=== PATIENT | male | born 1955 | race Caucasian/White ===

== ENCOUNTER 2021-08-25 10:56 | Outpatient (CLI) | payer BC, SELFPAY ==
--- NOTE | 2021-08-25 10:45 | RT.EKG_ITS ---
APPROVED REPORT Exam: Resting ECG Reason for Exam: SOB Patient Location: O HR:47 bpm ECG Measurements Heart Rate 47 AXIS KS 185 P 39 QRSd 102 QRS -28 QT 462 T 26 QTc 407 Conclusion Sinus bradycardia...rate< 60
== END 2021-08-25 10:57 | disposition home or self-care (01) ==
LOC: DI.CM 10:58
PROVIDERS: Visit Provider Physician Assistant
DX: R06.02 Shortness of breath (principal); U09.9 Post COVID-19 condition, unspecified
CPT/HCPCS: 93010

== ENCOUNTER → 2021-08-25 13:26 | Outpatient (CLI) | payer BC, SELFPAY ==
--- NOTE | 2021-08-25 12:27 | DI.RAD_ITS ---
Exam(s) XR CHEST 2V PA LATERAL EXAM: XR CHEST 2V PA LATERAL CLINICAL HISTORY: cough, x 5 weeks, s/p covid, R05.9 TECHNIQUE: 2D digital imaging was performed of the chest. Three images were obtained. PA and later al views were obtained. COMPARISON: No exams were available for comparison FINDINGS: MEDIASTINUM: Normal. HEART: Normal. PULMONARY VASCULATURE: Normal. LUNGS: Clear. PLEURAL SPACE: No pleural effusion or pneumothorax. BONE:Within normal limits for the patient's age. OTHER FINDINGS:Normal. IMPRESSION: No acute pulmonary findings. DATA REPOSITORY: RADIATION DOSE DELIVERED:
== END ==
PROVIDERS: Visit Provider Physician Assistant
DX: R05.8 Other specified cough (principal); Z86.16 Personal history of COVID-19
CPT/HCPCS: 71046

== ENCOUNTER 2021-12-22 01:20 | Outpatient (CLI) | payer MEDICARE, SELFPAY ==
[2021-12-22 13:02] LABS: Magnesium 1.8 mg/dL (1.8-2.4); Vitamin B12 759 pg/mL (193-986)
== END 2021-12-22 01:21 | disposition home or self-care (01) ==
LOC: LOS 01:20
DX: D51.8 Other vitamin B12 deficiency anemias (principal); G62.9 Polyneuropathy, unspecified; R25.2 Cramp and spasm
CPT/HCPCS: 36415; 82607; 83735

== ENCOUNTER 2022-11-15 02:55 | Outpatient (CLI) | payer MEDICARE, SELFPAY ==
[2022-11-15 12:18] LABS: Abs Immature Grans 0.02 10^3/uL (0.0-0.06); Absolute Basophil Count 0.03 10^3/uL (0.0-0.2); Absolute Eosinophil Count 0.17 10^3/uL (0.0-0.7); Absolute Monocyte Count 0.67 10^3/uL (0.1-0.8); Absolute Neutrophil Count 2.73 10^3/uL (1.2-6.7); Basophils % 0.5; Eosinophils % 2.9; HGB 13.4 g/dL (13.5-17.5); Immature Grans % 0.3; Lymphocytes % 38.9; MCH 30.2 pg (27.0-33.0); MCHC 33.5 % (32.0-36.0); MCV 90 fL (80-95); MPV 11.7 fL (8.0-11.0); Monocytes % 11.3; Neutrophils % 46.1; Platelet Count 226 10^3/uL (130-400); RBC 4.44 10^6/uL (4.36-5.78); RDW 13.1 % (11.8-14.1); RDW-SD 43.2 fL; WBC 5.92 10^3/uL (4.4-10.8)
[2022-11-15 15:12] LABS: Ferritin 153 ng/mL (26-388)
[2022-11-15 22:13] LABS: PSA, Screening 0.9 ng/mL (<=4.5)
== END 2022-11-15 02:56 | disposition home or self-care (01) ==
LOC: LOS 02:55
PROVIDERS: PCP Nurse Practitioner Family; Visit Provider Nurse Practitioner Family
DX: D64.9 Anemia, unspecified (principal); G62.9 Polyneuropathy, unspecified; Z12.5 Encounter for screening for malignant neoplasm of prostate
CPT/HCPCS: 36415; 84153; 82728; 85025

== ENCOUNTER → 2022-12-21 11:41 | Outpatient (CLI) | payer MEDICARE, SELFPAY ==
[2022-12-21] MEDS: Barium Sulfate 2% W/V-Creamy Vanilla Smoothie 450 ML BTL PO (10:41)
[2022-12-21] MEDS: Barium Sulfate 2% W/V-Berry Smoothie 450 ML BTL PO (10:41)
[2022-12-21 10:57] LABS: CREATININE 1.2 mg/dL (0.70-1.30)
[2022-12-21] MEDS: Omnipaque 350 MG/ML 500 ML BTL-Imaging package 100 ML IJ (12:41)
[2022-12-21] MEDS: Normal Saline - Diluent 50 ML VIAL IJ (12:43)
--- NOTE | 2022-12-21 12:50 | DI.CT_ITS ---
Exam(s) CT ABDOMEN PELVIS W EXAM: CT ABDOMEN PELVIS W CLINICAL HISTORY: LLQ abdominal pain,H/O DIVERTICULITIS,R10.32,Z87.19 TECHNIQUE: Imaging Protocol: Axial computed tomography images with coronal and sagittal reformatted images were created and reviewed CONTRAST MATERIAL: Intravenous: Omnipaque 350 Contrast volume:100 mL Oral: Yes COMPARISON: No exams were available for comparison FINDINGS: ABDOMEN: Lung Bases: There is a small hiatal hernia. Liver: Normal density. No measurable mass. There is a 1-2 mm tiny hypodensity in the right lobe of th e liver. It is too small for further characterization. Portal, Superior Mesenteric, and Splenic Veins: Unremarkable. Gallbladder and Biliary Tract: No radiodense calculus or dilation. Pancreas: Normal density, no abnormal calcifications or inflammatory process. Spleen: Normal. Adrenals: No masses seen. Kidneys: Normal size, contour and axis. No radiodense stones or obstructive uropathy. There is a 2.3 cm simple cyst in the right kidney. No follow-up is recommended. Abdominal Aorta: Abdominal portion non-dilated. Atherosclerosis. Bowel: There is colonic diverticulosis present. There are mild inflammatory changes seen at the junc tion of the descending and sigmoid colon consistent with acute diverticulitis. There also mild infla mmatory changes seen in the mid descending colon. There is no evidence of bowel obstruction. No josiah dence of appendicitis. Peritoneal Cavity: No ascites, collection or mesenteric inflammatory response. No free air. Lymph Nodes: Within normal limits. Bones: Within normal limits for the patient's age. There is unilateral left spondylolysis at L5. Th ere is a mild S-type thoracolumbar scoliosis. Soft Tissues: Unremarkable. PELVIS: Bladder: Symmetric distention, no gross wall thickening. Reproductive Organs: Unremarkable as visualized. Lymph Nodes: Within normal limits. Bones: Within normal limits for the patient's age. IMPRESSION: Findings of acute diverticulitis involving the descending colon. No abscess or free air. RADIATION DOSE DELIVERED: 980.44mGy.cm Total DLP DATA REPOSITORY: All CT scans at this facility are submitted to the National Radiology Data Registry (NRDR) Dose Index Registry (DIR) with the [employer] (A[employer]). RADIATION OPTIMIZATION: All CT scans at this facility use at least one of these dose optimization te chniques: automated exposure control; mA and/or kV adjustment per patient size (includes targeted exa ms where dose is matched to clinical indication); or iterative reconstruction.
== END ==
PROVIDERS: PCP Nurse Practitioner Family; Visit Provider Nurse Practitioner Family
DX: Z87.19 Personal history of other diseases of the digestive system; K57.32 Diverticulitis of large intestine without perforation or abscess without bleeding
CPT/HCPCS: 74177; 82565

== ENCOUNTER 2023-02-13 02:00 | Outpatient (CLI) | payer MEDICARE, SELFPAY ==
[2023-02-13 11:53] LABS: GTT Comment See Comments
== END 2023-02-13 02:01 | disposition home or self-care (01) ==
PROVIDERS: PCP Nurse Practitioner Family; Visit Provider Nurse Practitioner Family
DX: G62.9 Polyneuropathy, unspecified (principal)
CPT/HCPCS: 36415; 82951

== ENCOUNTER 2023-09-18 09:05 | Outpatient (CLI) | payer MEDICARE, SELFPAY ==
[2023-09-18 12:10] LABS: Abs Immature Grans 0.01 10^3/uL (0.0-0.06); Absolute Basophil Count 0.05 10^3/uL (0.0-0.2); Absolute Eosinophil Count 0.26 10^3/uL (0.0-0.7); Absolute Lymphocyte Count 1.91 10^3/uL (1.2-3.4); Absolute Monocyte Count 0.39 10^3/uL (0.1-0.8); Absolute Neutrophil Count 2.26 10^3/uL (1.2-6.7); Eosinophils % 5.3 %; HCT 39.6 % (40.0-50.0); HGB 13.3 g/dL (13.5-17.5); Immature Grans % 0.2 %; Lymphocytes % 39.1 %; MCH 30.3 pg (27.0-33.0); MCHC 33.6 % (32.0-36.0); MCV 90 fL (80-95); MPV 10.9 fL (8.0-11.0); Neutrophils % 46.4 %; Platelet Count 219 10^3/uL (130-400); RBC 4.39 10^6/uL (4.36-5.78); RDW 12.3 % (11.8-14.1); RDW-SD 40.9 fL; WBC 4.88 10^3/uL (4.4-10.8)
[2023-09-18 12:30] LABS: Anion Gap 6.3 mmol/L (3-11); BUN 18 mg/dL (7-18); CO2 29.7 mmol/L (21.0-32.0); CREATININE 1.2 mg/dL (0.70-1.30); Calcium 9.1 mg/dL (8.5-10.1); Calculated LDL 92 mg/dL (<100); Chloride 106 mmol/L (98-107); Cholesterol 160 mg/dL (<200); Glucose 103 mg/dL (74-106); HDL Cholesterol 57 mg/dL (40-60); Potassium 4.6 mmol/L (3.5-5.1); Sodium 142 mmol/L (136-145); Triglyceride 55 mg/dL (<150)
[2023-09-18 17:59] LABS: PSA, Screening 1.1 ng/mL (<=4.5)
[2023-09-18 23:18] LABS: Ferritin 157 ng/mL (26-388); Vitamin B12 546 pg/mL (193-986)
[2023-09-18 23:19] LABS: Folate > 20.0 ng/mL (8.6-20.0)
[2023-09-19 10:02] LABS: Hepatitis C Ab w Rflx HCV PCR Negative (Negative)
[2023-09-19 10:11] LABS: HIV-1/2 Ag & Ab Screen Negative (Negative)
[2023-09-19 10:42] LABS: HBs Antibody, Quant <3.1 mIU/mL (See Note); Hep B Surface Ab Negative (See Note); Hepatitis B Core Antibody Negative (Negative); Hepatitis B Surface Antigen Negative (Negative)
== END 2023-09-18 09:06 | disposition home or self-care (01) ==
LOC: LOS 09:05
PROVIDERS: PCP Nurse Practitioner Family; Referring Provider Nurse Practitioner Family; Visit Provider Nurse Practitioner Family
DX: Z11.4 Encounter for screening for human immunodeficiency virus [HIV] (principal); Z00.00 Encounter for general adult medical examination without abnormal findings; Z12.5 Encounter for screening for malignant neoplasm of prostate; Z11.59 Encounter for screening for other viral diseases; D64.9 Anemia, unspecified
CPT/HCPCS: 36415; 80048; 80061; 84153; 86704; 86706; 86803; 87340; 87389; 82607; 82728; 82746; 85025

== ENCOUNTER 2024-01-13 16:38 | Emergency (ER) | payer MEDICARE, SELFPAY ==
[2024-01-13 16:39] VITALS: BP 167/90; PULSE 51; RESP 10; TEMP 36.2; O2SAT 97
--- NOTE | 2024-01-13 17:05 | DI.RAD_ITS ---
Exam(s) XR HAND LT COMPLETE EXAM: XR HAND LT COMPLETE CLINICAL HISTORY: left hand injury. TECHNIQUE: 2D digital imaging was performed. COMPARISON: No exams were available for comparison FINDINGS: 3 views No evidence of acute fracture or dislocation nor abnormal soft tissue densities. Bone density is nor mal. There are no osseous lesions nor erosions. No radiopaque foreign bodies evident. No gas in th e soft tissues. IMPRESSION: No significant osseous findings in left hand. DATA REPOSITORY: RADIATION DOSE DELIVERED:
--- NOTE | 2024-01-13 19:07 | ED.GENADUL_ITS ---
Discharge Plan Disposition Patient Disposition: Home Condition: Stable Discharge Details Clinical Impression: Hand pain, left Primary Care Provider: Stephany Caba ED Provider: Dariela Cannon Home Meds and New Rx's Prescriptions: No Action vitamin B complex [B Complex-Vitamin B12] Tablet 1 tab PO DAILY cholecalciferol (vitamin D3) 50 mcg (2,000 unit) capsule 50 mcg PO DAILY L-serine 1 cap PO DAILY alpha lipoic acid 600 mg tablet 600 mg PO DAILY Discharge Instructions Instructions: Hand Pain (DC) Additional Instructions: * X-ray imaging does not reveal an acute bony injury. * You may have some ligamentous injury and if you still continue to have symptoms you may benefit from an MRI. This can be ordered by your PCP. Please follow-up with them for reevaluation. * continue ibuprofen for discomfort Discharge Data Discharge Date/Time-TO BE ENTERED AT DEPARTURE: 01/13/24 17:26 HPI General Date/Time Provider Initiated Documentation: 01/13/24 16:55 . Limitations to Documentation: no limitations . Information obtained by: patient . HPI Narrative: 68-year-old gentleman without significant past medical history presents for evaluation of left hand pain. He reports 1 month ago he was hiking with poles when he tripped and the loop of the pole pulled his long and ring finger of the left hand. He did not notice any deformity or significant swelling. He reports that he has had pain for the last month at the knuckles. He has not seen a doctor about this. It does not really bother him that much but it has not gotten better so he felt like he should come get checked out today Related Data Home Medications ?Medication ?Instructions ?Recorded ?Confirmed vitamin B complex (B 1 tab PO DAILY 12/19/21 01/13/24 Complex-Vitamin B12 tablet) L-serine 1 cap PO DAILY 02/04/23 01/13/24 alpha lipoic acid 600 mg tablet 600 mg PO DAILY 02/04/23 01/13/24 cholecalciferol (vitamin D3) 50 50 mcg PO DAILY 09/18/23 01/13/24 mcg (2,000 unit) capsule Allergies Allergy/AdvReac Type Severity Reaction Status Date / Time No Known Allergies Allergy Verified 01/13/24 16:43 General Stated Complaint: Orthopedic TERRA: 4 Exam Narrative Exam Narrative: Review of Systems: All systems reviewed & are unremarkable except as noted in HPI and below Well-developed, no acute distress Unlabored respiratory effort Left hand without deformity, swelling or tenderness, full range of motion in all distributions, sensation intact in all distributions Course Vital Signs Vital signs: Vital Signs Temperature 36.2 C L 01/13/24 16:39 Pulse 51 L 01/13/24 16:39 Respiratory Rate 10 L 01/13/24 16:39 Blood Pressure 167/90 H 01/13/24 16:39 Pulse Oximetry 97 01/13/24 16:39 Temperature 36.2 C L 01/13/24 16:39 Temperature Source Skin 01/13/24 16:39 Pulse 51 L 01/13/24 16:39 Respiratory Rate 10 L 01/13/24 16:39 Respiratory Effort Normal, Non-Labored 01/13/24 16:41 Blood Pressure 167/90 H 01/13/24 16:39 Blood Pressure Position Sitting 01/13/24 16:39 Pulse Oximetry 97 01/13/24 16:39 Oxygen Delivery Method Room Air 01/13/24 16:39 Oxygen Flow Rate 0 01/13/24 16:39 Pain Level 5 01/13/24 16:39 Medical Decision Making Evaluation of ongoing hand pain. Patient had remote injury a month ago. Examination at this time is benign and I do not find any abnormalities. X-ray was obtained to evaluate for any occult or bony injury. X-ray was reviewed and independently interpreted: No bony injury. Confirmed by radiology report. I recommend continued Motrin and Tylenol as needed for discomfort. If patient is having significant issues with his hand, recommend follow-up with PCP for outpatient MRI as needed. Quality:SDOH Health Related Social Needs: No Data to Display PFSH All Active Problems Hand pain, left (Acute) Peripheral neuropathy (Chronic) GERD (gastroesophageal reflux disease) (Chronic) Elevated BP without diagnosis of hypertension (Chronic) Diverticulosis of colon (Chronic) Medical History Diverticulitis Repeated episodes Anemia Vitamin B12 deficiency Surgical History S/P medial meniscectomy of right knee With repair of MCL Status post left knee replacement S/P excision of lipoma (07/23/22) Left back H/O left knee surgery (~2019) 10 Family History Mother Hypertension Father Prostate cancer Hypertension Stroke Multiple myeloma Sister Hypertension Sister No problems noted. Sister No problems noted. Son Alcohol use disorder Daughter No problems noted. Daughter No problems noted. Maternal Grandfather Parkinsons disease Maternal Grandmother No problems noted. Paternal Grandfather No problems noted. Paternal Grandmother No problems noted. Social History Smoking/Tobacco Use Status: Never Second Hand Exposure: No Smoking risk assessment performed?: Yes Alcohol Intake: current Alcohol Intake frequency: a few times a week Alcohol type: beer, wine and hard liquor Drug use: Never Substance use type: does not use Caregiver/Support person: No Household members: spouse Housing: house Communication Needs: None Do you need help understanding health information?: Rarely Pets and animals: Yes Pets and animals: cat(s) Sexually active: Yes Do you think of yourself as: straight/heterosexual Current gender identity: male What is your relationship status?: How often do you talk on the phone with friends or family?: three or more times per week How often do you get together with friends or relatives?: three or more times per week How often do you attend gnosticism or denominational services?: 1-3 times per year Do you belong to any clubs or organized social groups?: yes Panel score (0-1 are the most socially isolated patients): 3 What type of physical activity do you participate in: bicycling, weight lifting and running Duration: 60-90 minutes/day Frequency: daily Katia/Baptism: No preference Special katia needs: No Seatbelt use: always Helmet use: Yes Helmet use: always Drive intox or ride w/intox airport driver: No Do you feel safe at home: Yes Do you feel safe in your relationship?: Yes PAWSS Have you Been Recently Intoxicated or Drunk Within the Last 30 days?: No Have you Ever Experienced Previous Episodes of Alcohol Withdrawal?: No Have you ever Experienced Withdrawal Seizures?: No Have you ever Experienced Delirium Tremens(DT)s?: No Have you ever undergone Alcohol Rehabilitation Treatment (i.e, inpt ot outpatient treatment programs)?: No Have you ever Experienced Blackouts?: No Have you ever Combined Alcohol with other Downers within the last 90 days?: No Have you ever Combined Alcohol with any other Substance of Abuse during the last 90 days?: No Positive Blood Alcohol level on Presentation? [PCS.BAL]: No Evidence of Increased Autonomic Activity (i.e. HR>120, tremor, sweating, agitation, nausea)?: No Result: 0
== END 2024-01-13 17:26 | disposition home or self-care (01) ==
PROVIDERS: Emergency Provider Emergency Medicine; PCP Nurse Practitioner Family
DX: M79.642 Pain in left hand (principal)
CPT/HCPCS: 99283; 73130

== ENCOUNTER → 2024-05-07 08:36 | Outpatient (BNVA) | payer MEDICARE, SELFPAY | PROVIDERS: PCP Nurse Practitioner Family; Referring Provider Nurse Practitioner Family; Visit Provider Physical Therapy Assistant | DX: Z12.11 Encounter for screening for malignant neoplasm of colon (principal) ==

== ENCOUNTER 2024-05-25 06:50 | Day surgery (SDC) | payer MEDICARE, SELFPAY ==
[2024-05-25 07:05] VITALS: BP 141/95; PULSE 72; RESP 16; TEMP 36.3; O2SAT 95
[2024-05-25] MEDS: Lactated Ringers 1,000 ML 80 ML IV (07:19)
--- NOTE | 2024-05-25 07:27 | W.ANESPRE ---
General Info Date of Service Date Performed: 05/25/24 Height: 5 ft 10 in Weight: 90.6 kg Body Mass Index (BMI): 28.6 Surgical Procedure: Operation Date: 05/25/24 08:20 Proposed Procedure Side Surgeon p Colonoscopy Richard Glynn MD Actual Procedure Side Surgeon p Colonoscopy Not Applicable Richard Glynn MD Pre-Op Diagnosis Post-Op Diagnosis screening colonoscopy Meds Allergies and Home Medications Allergies Allergy/AdvReac Type Severity Reaction Status Date / Time No Known Allergies Allergy Verified 05/25/24 06:59 Home Medication ?Medication ?Instructions ?Recorded vitamin B complex (B 1 tab PO DAILY 12/19/21 Complex-Vitamin B12 tablet) alpha lipoic acid 600 mg tablet 600 mg PO DAILY 02/04/23 cholecalciferol (vitamin D3) 50 50 mcg PO DAILY 09/18/23 mcg (2,000 unit) capsule bisacodyl 5 mg tablet,delayed 5 mg PO ONCE #4 tabs 05/07/24 release (Dulcolax (bisacodyl)) polyethylene glycol 3350 17 17 g PO ONCE #238 grams 05/07/24 gram/dose oral powder Current Visit Medications: Current Medications Generic Name Dose Route Start Last Admin Trade Name Freq PRN Reason Stop Dose Admin Ringer's Solution 1,000 mls @ 80 mls/hr 05/25/24 06:00 05/25/24 07:19 IV 05/25/24 23:59 80 mls/hr INFUSION NOE Administration IV Miscellaneous Supplies 1 each 05/25/24 06:00 Iv Access IV 05/25/24 23:59 DIRECTED NOE Sodium Chloride 0 ml 05/25/24 06:00 Normal Saline Flush 10 Ml Syr IV 05/25/24 23:59 PRN PRN Sodium Chloride 0 ml 05/25/24 06:00 Normal Saline 10 Ml Vial IJ 05/25/24 23:59 DIRECTED PRN Sterile Water 0 ml 05/25/24 06:00 Water,Injection,Sterile 10 Ml Vial IJ 05/25/24 23:59 DIRECTED PRN PFSH Active Problems Active Problems: Problem Status Onset Code Peripheral neuropathy Chronic G62.9 GERD (gastroesophageal reflux disease) Chronic K21.9 Elevated BP without diagnosis of hypertension Chronic R03.0 Diverticulosis of colon Chronic K57.30 Medical History Medical History Diverticulitis Repeated episodes Anemia Vitamin B12 deficiency Surgical History Surgical History S/P medial meniscectomy of right knee With repair of MCL Status post left knee replacement S/P excision of lipoma (07/23/22) Left back H/O left knee surgery (~2019) 10 Tobacco Smoking/Tobacco Use Status: Never Passive smoking exposure: No Second hand exposure: No Alcohol Alcohol Intake: current Alcohol intake frequency: a few times a week Alcohol type: beer, wine and hard liquor Substance Use Substance use: Never Substance use type: does not use Vital Signs and Lab Results Vital Signs Most Recent Vital Signs in EMR: Most Recent Vital Signs Temp Pulse Resp BP Pulse Ox 36.3 C L 72 16 141/95 H 95 05/25/24 07:05 05/25/24 07:05 05/25/24 07:05 05/25/24 07:05 05/25/24 07:05 Lab Results Blood Type / Crossmatch: No Data to Display Complete Blood Count: No Data to Display Complete Metabolic Panel: No Data to Display Liver Function Panel: No Data to Display Coagulation Panel: No Data to Display Cardiac Panel: No Data to Display Arterial Blood Gas: No Data to Display Venous Blood Gas: No Data to Display Pancreas Panel: No Data to Display Thyroid Panel: No Data to Display Infectious Disease: No Data to Display Blood Cultures: No Data to Display Toxicology Panel: No Data to Display Anesthesia Assessment and Plan Anesthesia History Personal History: No History of Anesthesia Complications Family History: No Family History of Anesthesia Complications Exercise Tolerance Exercise Tolerance: Metabolic Equivalents>4 Pertinent Negatives Pertinent Negatives: No Symptoms of GERD, No Major Cardiovascular Symptoms or Complaints, No Major Pulmonary Symptoms or Complaints and No History of CVA/TIA Cardiac & Pulmonary Exam Cardiac Exam: Normal S1/S2 Heart Sounds Pulmonary Exam: Clear Bilateral Breath Sounds Implantable Cardiac Device Does patient have a Pacemaker or an ICD?: No Airway Exam Known Difficult Airway: No Mallampati Class: 2 Mouth Opening: Normal (> 3cm) Thyromental Distance: Greater than 3 cm Neck Range of Motion: Full ROM Neck Circumference: Normal Teeth Condition: Normal Dentition ASA Classification ASA Score: ASA 2 Emergency Case?: No NPO Status NPO Status: NPO Clears >2 hours, Solids >8 hours Anesthesia Plan Resuscitation Status: Full Code Anesthesia Technique: General Anesthesia Airway Planned: Natural Airway Monitors Used: Standard Monitors
[2024-05-25 07:29] VITALS: BMI 28.6
--- NOTE | 2024-05-25 08:09 | BOWEL_PTH ---
PATIENT: Amadou Laguerre LOC: [facility] U#:[id number] AGE/SX: 68/M ROOM: RE05/25/[address]: Richard Glynn : 1955 BED: DIS: 05/25/2024 SPEC #: [id number] RECD: 05/25/24 12:25 STATUS: LALA ZIMMER #: [id number] KATIE: 05/25/24 08:[address]: Richard Glynn DEPT: Surgical Specimen RECD BY: Tere Arteaga ENTERED: 05/25/24 12:28 SP TYPE: Bowel OTHR DR: INGA Boateng Tissues: APPENDIX INCIDENTAL 1 - BIOPSY BOWEL Procedures: GROSS AND MICRO LEVEL 4 Comments: [id number]
[2024-05-25 08:25] VITALS: BP 95/79; PULSE 59; RESP 15; TEMP 36.4; O2SAT 94
--- NOTE | 2024-05-25 08:35 | W.COLOREPORT ---
Date of service: 05/25/24 Time of Service: 08:35 Colonoscopy Report Procedure Description: PROCEDURES PERFORMED: 1. Colonoscopy with cold forceps polypectomy x2 PREOPERATIVE DIAGNOSIS: Surveillance colonoscopy POSTOPERATIVE DIAGNOSIS: Colon polyps, pandiverticulosis SURGEON: Shyla Glynn MD INDICATION for procedure: The patient is a 68-year-old man without any symptoms due for surveillance colonoscopy. No family history of colon cancer. His last colonoscopy was more than 10 years ago with no significant findings. He does have known diverticular disease. FINDINGS: At the appendix orifice is a small 2-3 mm polyp that was removed with cold forceps technique. It looks adenomatous. Difficult to say if it was completely removed or not since it was going down into the appendix. Next to this in the cecum, another 2-3 mm sessile polyp was removed with cold forceps technique. There are diverticular changes throughout the entire colon. No active inflammation or stricture anywhere. SURVEILLANCE interval/FOLLOW-UP: pending path results. If the appendix polyp is adenomatous, I recommend removing the appendix in case there is residual polyp within. SPECIMENS: yes EBL: Minimal COMPLICATIONS: None QUALITY of prep: Excellent Procedure in detail: The patient gave written consent and was in agreement with the indications, the potential risks as well as the benefits of the procedure. They were taken to the endoscopy suite and laid in the left lateral decubitus position. A timeout was performed and anesthesia was administered which was tolerated well. I started the procedure. Digital rectal and visual examination was performed and grossly within normal limits. A well-lubricated flexible colonoscope was then introduced and passed without any notable difficulty all the way to the cecum identified by the ileocecal valve and the appendiceal orifice. The scope was then slowly withdrawn with the above-noted findings. The patient tolerated the procedure well and was taken to the PACU in hemodynamically stable condition.
--- NOTE | 2024-05-25 08:38 | W.PM.DSUDISC ---
Date of service: 05/25/24 Discharge Plan Disposition Patient Disposition: Home Condition: Good Discharge Details Attending Provider: Richard Glynn Primary Care Provider: Stephany Caba Home Meds and New Rx's Prescriptions: No Action vitamin B complex [B Complex-Vitamin B12] Tablet 1 tab PO DAILY cholecalciferol (vitamin D3) 50 mcg (2,000 unit) capsule 50 mcg PO DAILY alpha lipoic acid 600 mg tablet 600 mg PO DAILY bisacodyl [Dulcolax (bisacodyl)] 5 mg tablet,delayed release (DR/EC) 5 mg PO ONCE Qty: 4 0RF Rx Instructions: Take per colonoscopy instructions provided by ordering providers office polyethylene glycol 3350 17 gram/dose powder 17 g PO ONCE Qty: 238 0RF Rx Instructions: Take per colonoscopy instructions provided by ordering providers office Discharge Instructions Additional Instructions: FINDINGS: A couple of small polyps were found and removed today. They are nothing to worry about. Depending on the path results however, we may need to discuss removing your appendix electively. Again, nothing to worry about, but one of the small polyps was within your appendix which has some implications potentially. We can discuss this and follow-up in the office for more detail. Your diverticular disease is extensive, but again, this is benign and nothing can be done about it. Your next colonoscopy should be in 10 years. Activity:: Activity as Tolerated Diet:: As Tolerated
--- NOTE | 2024-05-25 08:48 | W.ANESPOSTOP ---
Postoperative Evaluation Date, Time and Location Date Performed: 05/25/24 Time Performed: 08:38 Patient Location: Day Surgery Unit Vital Signs Most Recent Imported Vital Signs: Most Recent Vital Signs Temp Pulse Resp BP Pulse Ox 36.4 C L 59 L 15 95/79 L 94 05/25/24 08:25 05/25/24 08:25 05/25/24 08:25 05/25/24 08:25 05/25/24 08:25 Pain Score Most Recent Pain Score: Most Recent Pain Score Pain Level 0 05/25/24 08:25 Assessment Mental Status: Awake (Alert & Oriented to Patient Baseline) Airway and Respiratory Function: Patent airway with normal (patient baseline) respiratory exam Cardiovascular Function: Hemodynamically Stable Hydration Status: Adequately Hydrated Nausea & Vomiting: No Nausea or Vomiting Pain: Pt. Denies Any Pain Peripheral Nerve Block: Patient did not receive a nerve block
[2024-05-25 08:51] VITALS: BP 129/80; PULSE 55; RESP 16; TEMP 36.6; O2SAT 97
== END 2024-05-25 09:38 | disposition home or self-care (01) ==
PROVIDERS: PCP Nurse Practitioner Family; Visit Provider Student in an Organized Health Care Education/Training Program
PROC: 0DJD8ZZ Inspection of Lower Intestinal Tract, Via Natural or Artificial Opening Endoscopic (ICD-10-PCS; CPT 45378; principal; 2024-05-25 08:15)
DX: Z12.11 Encounter for screening for malignant neoplasm of colon (principal); D12.1 Benign neoplasm of appendix; K57.30 Diverticulosis of large intestine without perforation or abscess without bleeding; D12.0 Benign neoplasm of cecum
CPT/HCPCS: 45380; 88305; 88302; J2704

== ENCOUNTER → 2024-06-11 13:14 | Outpatient (BNVA) | payer MEDICARE, SELFPAY | PROVIDERS: PCP Nurse Practitioner Family; Referring Provider Nurse Practitioner Family; Visit Provider Student in an Organized Health Care Education/Training Program | DX: Z48.815 Encounter for surgical aftercare following surgery on the digestive system (principal) | CPT/HCPCS: 99214 ==

== ENCOUNTER 2024-07-22 07:54 | Day surgery (SDC) | payer MEDICARE, SELFPAY ==
--- NOTE | 2024-07-21 21:22 | W.ANESPRE ---
General Info Date of Service Date Performed: 07/22/24 Height: 5 ft 9 in Weight: 93.44 kg Body Mass Index (BMI): 30.4 Surgical Procedure: Operation Date: 07/22/24 09:10 Proposed Procedure Side Surgeon p Appendectomy Laparoscopic Richard Glynn MD s Gastroscopy Richard Glynn MD Meds Allergies and Home Medications Allergies Allergy/AdvReac Type Severity Reaction Status Date / Time No Known Allergies Allergy Verified 07/22/24 08:23 Home Medication ?Medication ?Instructions ?Recorded vitamin B complex (B 1 tab PO DAILY 12/19/21 Complex-Vitamin B12 tablet) alpha lipoic acid 600 mg tablet 600 mg PO DAILY 02/04/23 cholecalciferol (vitamin D3) 50 50 mcg PO DAILY 09/18/23 mcg (2,000 unit) capsule Current Visit Medications: Current Medications Generic Name Dose Route Start Last Admin Trade Name Freq PRN Reason Stop Dose Admin Ringer's Solution 1,000 mls @ 80 mls/hr 07/22/24 06:00 IV 07/22/24 23:59 INFUSION NOE IV Miscellaneous Supplies 1 each 07/22/24 06:00 Iv Access IV 07/22/24 23:59 DIRECTED NOE Sodium Chloride 0 ml 07/22/24 06:00 Normal Saline Flush 10 Ml Syr IV 07/22/24 23:59 PRN PRN Sodium Chloride 0 ml 07/22/24 06:00 Normal Saline 10 Ml Vial IJ 07/22/24 23:59 DIRECTED PRN Sterile Water 0 ml 07/22/24 06:00 Water,Injection,Sterile 10 Ml Vial IJ 07/22/24 23:59 DIRECTED PRN PFSH Active Problems Active Problems: Problem Status Onset Code Peripheral neuropathy Chronic G62.9 GERD (gastroesophageal reflux disease) Chronic K21.9 Elevated BP without diagnosis of hypertension Chronic R03.0 Diverticulosis of colon Chronic K57.30 Medical History Medical History Diverticulitis Repeated episodes Anemia Vitamin B12 deficiency Surgical History Surgical History History of colonoscopy (~05/2024) S/P medial meniscectomy of right knee With repair of MCL Status post left knee replacement S/P excision of lipoma (07/23/22) Left back H/O left knee surgery (~2019) 10 Tobacco Smoking/Tobacco Use Status: Never Passive smoking exposure: No Second hand exposure: No Alcohol Alcohol Intake: current Alcohol intake frequency: a few times a week Alcohol type: beer, wine and hard liquor Substance Use Substance use: Never Substance use type: does not use Vital Signs and Lab Results Vital Signs Most Recent Vital Signs in EMR: Temp Pulse Resp BP Pulse Ox 36.3 C L 53 L 16 145/88 H 96 07/22/24 08:16 07/22/24 08:16 07/22/24 08:16 07/22/24 08:16 07/22/24 08:16 Lab Results Blood Type / Crossmatch: No Data to Display Complete Blood Count: No Data to Display Complete Metabolic Panel: No Data to Display Liver Function Panel: No Data to Display Coagulation Panel: No Data to Display Cardiac Panel: No Data to Display Arterial Blood Gas: No Data to Display Venous Blood Gas: No Data to Display Pancreas Panel: No Data to Display Thyroid Panel: No Data to Display Infectious Disease: No Data to Display Blood Cultures: No Data to Display Toxicology Panel: No Data to Display Anesthesia Assessment and Plan Anesthesia History Personal History: No History of Anesthesia Complications Family History: No Family History of Anesthesia Complications Exercise Tolerance Exercise Tolerance: Metabolic Equivalents>4 Cardiac & Pulmonary Exam Cardiac Exam: Normal S1/S2 Heart Sounds Pulmonary Exam: Clear Bilateral Breath Sounds Implantable Cardiac Device Does patient have a Pacemaker or an ICD?: No Airway Exam Known Difficult Airway: No Mallampati Class: 2 Mouth Opening: Normal (> 3cm) Thyromental Distance: Greater than 3 cm Neck Range of Motion: Full ROM Neck Circumference: Normal Teeth Condition: Normal Dentition ASA Classification ASA Score: ASA 2 Emergency Case?: No NPO Status NPO Status: NPO Clears >2 hours, Solids >8 hours Anesthesia Plan Resuscitation Status: Full Code Anesthesia Technique: General Anesthesia Airway Planned: Endotracheal Tube Monitors Used: Standard Monitors Preoperative Comments:: 68 yo male for appy and EGD. Sig PMHx: HTN (no meds), GERD (no meds), anemia. Never smoker, occ EtOH. ECG: sinus Davey. Previous Anes: - colo, prop, natural airway, no issues.
[2024-07-22] VITALS (18 sets, daily range): BP systolic 111–145; BP diastolic 67–88; PULSE 41–54; RESP 14–18; TEMP 35.9–37; O2SAT 93–97; BMI 30.4
[2024-07-22] MEDS: Lactated Ringers 1,000 ML 80 ML IV (08:38)
[2024-07-22] MEDS: Heparin 5,000 UNITS/ML VIAL 5000 UNITS SC (08:43)
--- NOTE | 2024-07-22 12:01 | SCONE_ITS ---
Date of service: 07/22/24 Time of Service: 12:01 Assessment and Plan Assessment and plan (1) GERD (gastroesophageal reflux disease): Status: Chronic Assessment and plan: 68-year-old man with chronic acid reflux of unknown etiology warranting EGD evaluation. Polyp found in his appendix during colonoscopy warrants appendectomy. Plan: EGD and laparoscopic appendectomy History of Present Illness Narrative: Kale is a 68-year-old man who is here today for EGD and appendectomy. PFSH All Active Problems Peripheral neuropathy (Chronic) GERD (gastroesophageal reflux disease) (Chronic) Elevated BP without diagnosis of hypertension (Chronic) Diverticulosis of colon (Chronic) Medical History Diverticulitis Repeated episodes Anemia Vitamin B12 deficiency Surgical History History of colonoscopy (~05/2024) S/P medial meniscectomy of right knee With repair of MCL Status post left knee replacement S/P excision of lipoma (07/23/22) Left back H/O left knee surgery (~2018) 10 Family History Mother Hypertension Father Prostate cancer Hypertension Stroke Multiple myeloma Sister Hypertension Sister No problems noted. Sister No problems noted. Son Alcohol use disorder Daughter No problems noted. Daughter No problems noted. Maternal Grandfather Parkinsons disease Maternal Grandmother No problems noted. Paternal Grandfather No problems noted. Paternal Grandmother No problems noted. Social History Smoking/Tobacco Use Status: Never Second Hand Exposure: No Smoking risk assessment performed?: Yes Alcohol Intake: current Alcohol Intake frequency: a few times a week Alcohol type: beer, wine and hard liquor Drug use: Never Substance use type: does not use Caregiver/Support person: No Household members: spouse Housing: house Communication Needs: None Do you need help understanding health information?: Rarely Pets and animals: Yes Pets and animals: cat(s) Sexually active: Yes Do you think of yourself as: straight/heterosexual Current gender identity: male What is your relationship status?: How often do you talk on the phone with friends or family?: three or more times per week How often do you get together with friends or relatives?: three or more times per week How often do you attend congregational or jainism services?: 1-3 times per year Do you belong to any clubs or organized social groups?: yes Panel score (0-1 are the most socially isolated patients): 3 What type of physical activity do you participate in: bicycling, weight lifting and running Duration: 60-90 minutes/day Frequency: daily Katia/Methodist: No preference Special katia needs: No Seatbelt use: always Helmet use: Yes Helmet use: always Drive intox or ride w/intox fuel truck driver: No Do you feel safe at home: Yes Do you feel safe in your relationship?: Yes Exam Narrative Exam Narrative: Gen: Non-toxic, comfortable and interactive Neuro: Alert and oriented x3 Psych: Good mood and affect. Good insight and understanding into condition. Chest: Non-labored breathing, no wheezing, no visible shortness of breath. Heart: Regular Results Last Vital Signs Temp 97.3 F L 07/22/24 08:16 Pulse 53 L 07/22/24 08:16 Resp 16 07/22/24 08:16 BP 145/88 H 07/22/24 08:16 Pulse Ox 96 07/22/24 08:16
--- NOTE | 2024-07-22 12:06 | PDOC.DSDIS_ITS ---
Date of service: 07/22/24 Discharge Plan Disposition Patient Disposition: Home Condition: Good Discharge Details Attending Provider: Richard Glynn Primary Care Provider: Stephany Caba Home Meds and New Rx's Prescriptions: No Action vitamin B complex [B Complex-Vitamin B12] Tablet 1 tab PO DAILY cholecalciferol (vitamin D3) 50 mcg (2,000 unit) capsule 50 mcg PO DAILY alpha lipoic acid 600 mg tablet 600 mg PO DAILY Discharge Instructions Additional Instructions: FINDINGS: On EGD Your appendix was removed as we had planned and discussed. INSTRUCTIONS: Incisions: Keep clean and dry but they do not need to be covered. It is okay to shower but no tub bathing for 1 week. You can peel the glue off after 1 week. Activity: As tolerated - listen to your body. Diet: Regular diet tonight as tolerated. Medications: Resume all of your usual/regular home medications. Follow-up: If you are having any issues or concerns call the surgery office immediately. Otherwise, call to be seen in follow-up in 3 to 4 weeks. Pain control: Take Tylenol, 1000 mg, every 6 hours on a schedule for the next 3 days. You can use ibuprofen in addition to Tylenol if needed. You can also use ice if needed. Overall: Symptoms should not be worsening. If you have any difficulty breathing or you have return of symptoms of brought you to the hospital or your pain is otherwise worsening each day and you should call the doctor's office or come into the hospital to be checked out. Stand Alone Forms: Anesthesia Discharge Inst., DSU Post EGD Instructions, Sang Miranda (DSU) Referrals: Richard Glynn MD [ [facility] STAFF PHYSICIAN] - 08/20/24 1:15 pm DS: Diagnosis Discharge Diagnosis (1) GERD (gastroesophageal reflux disease): Status: Chronic
--- NOTE | 2024-07-22 12:06 | W.PM.OP ---
Operative Note Operative Note Refer to Anesthesia Record Procedure Description: Procedures performed: 1. Laparoscopic appendectomy Pre-op diagnosis: Appendix polyp Postoperative diagnosis: Same Surgeon: Shyla Glynn Anesthesia: Christina Brooch And Bracelet Maker: Elizabeth Indication for procedure: Polyp found on colonoscopy within the appendix. Polyp was removed during colonoscopy though unclear if more remained within the appendix itself. FINDINGS: A normal?appearing appendix was removed in standard fashion. Specimens: 1. Appendix Complications: None Blood loss: 0-5 cc Urine output: Not measured Implants/drains: None Procedure in detail: Patient gave written consent and was in agreement with the indications, the likely benefits as well as the potential risks of surgery. He was taken back to the operating room where anesthesia was administered which was tolerated well. He had an EGD performed (see separate procedure note). After that, he was positioned supine on the operating room table and we then prepped and draped in sterile fashion. We did a time out. Antibiotics and DVT prophylaxis had been given. When we were all in agreement with our timeout we started the procedure. A mixture of Marcaine and Exparel was injected at the umbilicus. A 5mm incision and trocar were placed at the umbilicus under visualization. Insufflation was performed which was tolerated well. Another 5mm port was placed suprapubic and then I upsized the umbilical port to a 12mm port under visualization. Local anesthetic was also given in each of the sites. We turned our attention to the right lower quadrant. We were able to easily identify the cecum and the terminal ileum but we were unable to identify the appendix anywhere. Following the tinea, it became readily obvious that the appendix was not only retrocecal but also retroperitoneal. I put another 5 mm port in the left lower quadrant. Using the LigaSure, I divided the lateral side?wall attachments to the distal cecum and in doing so mobilized it a very small amount. With this effort I was able to then roll the cecum cephalad and this nicely exposed the base of a normal?appearing appendix. I divided the mesoappendix all the way up to the base of the appendix at the level of the cecum. The base was healthy and viable. I passed the stapler across this and divided the appendix. It was placed in an Endo Catch bag and removed from the abdominal cavity. The specimen was passed off the back table and placed in formalin. The 12 mm port site was then closed with 0 Vicryl in the fascia using a Denilson-[place]. I rechecked for hemostasis in the right lower quadrant and it was excellent. The staple line looked perfect. I released/evacuated the pneumoperitoneum and then removed the 5 mm trocars. The skin was closed with running Monocryl and Dermabond was placed on top of each site. The patient tolerated the procedure well. The sponge, instruments and sharps counts were correct x3 at the end of the procedure. He was extubated and taken to the PACU in hemodynamically stable condition. Date of Procedure: 07/22/24
--- NOTE | 2024-07-22 12:06 | W.PM.ENDDOP ---
Date of service: 07/22/24 Time of Service: 12:06 Endoscopy Report PROCEDURE DESCRIPTION: PROCEDURES PERFORMED: 1. EGD with biopsies PREOPERATIVE DIAGNOSIS: GERD with esophagitis POSTOPERATIVE DIAGNOSIS: (small ~1cm)(type 1) Sliding Hiatal Hernia(Hill grade 3 hiatal defect), Erosive esophagitis(LA Grade A), Dacosta's esophagus SURGEON: Shyla Glynn MD INDICATION FOR PROCEDURE: 68-year-old man with long?standing acid reflux. Unknown etiology for this. Poorly?controlled at nighttime. FINDINGS: D2/D3 = normal D1/bulb = normal - no ulcers or inflammation Pylorus = normal Antrum = normal appearance, no ulcers, cold forceps biopsies were taken to rule out H. pylori routinely Body = normal appearance Fundus = normal, no polyps Cardia = normal Hiatus = Hill grade 3 hiatal defect, minimal sliding hiatal hernia(~1cm). Distal esophagus = at the level of the GE junction is some polypoid tissue as well as some mucosal changes that appear to be Dacosta's esophagus but some of the polypoid tissue is actually growth to some extent. Unclear if this is just hyperactive tissue or if this could be an early malignancy possibly. It was biopsied extensively with cold forceps technique. There was also some visible erosive esophagitis present with scant mucosal breaks (LA grade A). Mid esophagus = normal Proximal esophagus/hypopharynx/vocal cords = normal SURVEILLANCE-INTERVAL/FOLLOW-UP: Follow-up in a couple weeks to go over pathology Specimens: Yes EBL: Minimal COMPLICATIONS: None Procedure in detail: The patient gave written consent and was in agreement with the indications, the potential risks as well as the benefits of the procedure. The patient was taken the operating room for his planned laparoscopic procedure. He was put to sleep with general anesthesia and a timeout was performed. We then started the endoscopy portion of the procedure. A well-lubricated endoscope was gently and carefully advanced down the esophagus, into the stomach the scope was and through the pylorus into the duodenum. The scope was then slowly withdrawn with the above-noted findings/interventions. The patient tolerated the procedure well and we then prepped and draped for the laparoscopic procedure (see separate procedure note).
[2024-07-22] MEDS: ceFAZolin 2 GM/50 ML BAG IVPB (12:19)
--- NOTE | 2024-07-22 12:31 | APP_PTH ---
PATIENT: Amadou Laguerre LOC: [facility] U#:[id number] AGE/SX: 68/M ROOM: RE07/22/[address]: Richard Glynn : 1955 BED: DIS: 07/22/2024 SPEC #: [id number] RECD: 07/22/24 15:13 STATUS: LALA RE #: [id number] KATIE: 07/22/24 12:[address]: Richard Glynn DEPT: Surgical Specimen RECD BY: Tere Artegaa ENTERED: 07/22/24 15:14 SP TYPE: Appendix OTHR DR: Stephany Caba, INGA Tissues: 1 - STOMACH BIOPSY 2 - ESOPHAGUS BIOPSY 3 - ESOPHAGUS BIOPSY 4 - APPENDIX NOT INCIDENTAL Procedures: GROSS AND MICRO LEVEL 4 GROSS AND MICRO LEVEL 3 SPECIAL STAIN 1 Comments: [id number]
[2024-07-22] MEDS: Bupivacaine 0.25% Pres-Free 30 ML VIAL (13:03)
[2024-07-22] MEDS: Bupivacaine LIPOSOME/PF 133 MG/10 ML VIAL IJ (13:03)
--- NOTE | 2024-07-22 13:53 | W.ANESPOSTOP ---
Postoperative Evaluation Date, Time and Location Date Performed: 07/22/24 Time Performed: 13:54 Patient Location: PACU Vital Signs Most Recent Imported Vital Signs: Most Recent Vital Signs Temp Pulse Resp BP Pulse Ox 36.4 C L 45 L 16 129/67 95 07/22/24 13:48 07/22/24 13:46 07/22/24 13:46 07/22/24 13:46 07/22/24 13:46 Pain Score Most Recent Pain Score: Most Recent Pain Score Pain Level 0 07/22/24 13:48 Assessment Mental Status: Arousable with meaningful communication Airway and Respiratory Function: Patent airway with normal (patient baseline) respiratory exam Cardiovascular Function: Hemodynamically Stable Hydration Status: Adequately Hydrated Nausea & Vomiting: No Nausea or Vomiting Pain: Pain is tolerable per patient Peripheral Nerve Block: Patient did not receive a nerve block
== END 2024-07-22 15:53 | disposition home or self-care (01) ==
LOC: SUR 07:54
PROVIDERS: PCP Nurse Practitioner Family; Visit Provider Student in an Organized Health Care Education/Training Program
PROC: 0DTJ4ZZ Resection of Appendix, Percutaneous Endoscopic Approach (ICD-10-PCS; CPT 44970; principal; 2024-07-22 09:00)
PROC: 0DJ68ZZ Inspection of Stomach, Via Natural or Artificial Opening Endoscopic (ICD-10-PCS; CPT 43235; 2024-07-22 09:00)
DX: K21.00 Gastro-esophageal reflux disease with esophagitis, without bleeding (principal); K44.9 Diaphragmatic hernia without obstruction or gangrene; D12.1 Benign neoplasm of appendix; K22.89 Other specified disease of esophagus
CPT/HCPCS: 44970; 43239; 88305; 88304; 88312; J0131; J0665; J0666; J0690; J1644; J1885; J2704

== ENCOUNTER → 2024-08-20 14:51 | Outpatient (BNVA) | payer MEDICARE, SELFPAY | PROVIDERS: PCP Nurse Practitioner Family; Referring Provider Nurse Practitioner Family; Visit Provider Student in an Organized Health Care Education/Training Program | DX: Z48.89 Encounter for other specified surgical aftercare (principal) | CPT/HCPCS: 99024 ==

== ENCOUNTER 2025-02-01 00:31 | Outpatient (CLI) | payer MEDICARE, SELFPAY ==
[2025-02-01 14:38] LABS: HCT 42.4 % (40.0-50.0); HGB 13.8 g/dL (13.5-17.5); MCH 29.3 pg (27.0-33.0); MCHC 32.5 % (32.0-36.0); MCV 90 fL (80-95); MPV 11.0 fL (8.0-11.0); Platelet Count 239 10^3/uL (130-400); RBC 4.71 10^6/uL (4.36-5.78); RDW 12.3 % (11.8-14.1); RDW-SD 40.8 fL; WBC 5.55 10^3/uL (4.4-10.8)
[2025-02-01 15:07] LABS: Hemoglobin A1C 5.7 % (<5.7)
[2025-02-01 15:37] LABS: Anion Gap 7.3 mmol/L (3-11); BUN 23 mg/dL (7-18); CO2 29.7 mmol/L (21.0-32.0); Calcium 9.2 mg/dL (8.5-10.1); Chloride 104 mmol/L (98-107); Estimated GFR 65.87 (mL/min/1.73m2); Ferritin 108 ng/mL (26-388); Glucose 94 mg/dL (74-106); Potassium 4.8 mmol/L (3.5-5.1); Sodium 141 mmol/L (136-145); Vitamin B12 259 pg/mL (193-986)
[2025-02-01 22:46] LABS: PSA, Screening 1.5 ng/mL (<=4.5)
== END 2025-02-01 00:32 | disposition home or self-care (01) ==
LOC: LOS 00:32
PROVIDERS: PCP Nurse Practitioner Family; Visit Provider Nurse Practitioner Family
DX: D64.9 Anemia, unspecified (principal); Z12.5 Encounter for screening for malignant neoplasm of prostate; R03.0 Elevated blood-pressure reading, without diagnosis of hypertension; R73.01 Impaired fasting glucose
CPT/HCPCS: 36415; 80048; 84153; 85027; 82607; 82728; 83036